=== PATIENT | female | born 1990 ===

== ENCOUNTER 2022-06-01 18:09 | Emergency (ER) | payer OTHER ==
[~2022-06-01] VITALS: Ht 177.8 cm; Wt 64.9 kg
[2022-06-01] MEDS ORDERED: HYDREA500 M1 PO (18:25)
[2022-06-01] MEDS ORDERED: KETO10TA2 PO (21:05)
== END 2022-06-01 21:13 | disposition home or self-care (01) ==
LOC: ER 18:09
DX: S69.91XA Unspecified injury of right wrist, hand and finger(s), initial encounter (principal); Y93.9 Activity, unspecified; Y92.009 Unspecified place in unspecified non-institutional (private) residence as the place of occurrence of the external cause; Y99.9 Unspecified external cause status; M25.511 Pain in right shoulder